=== PATIENT | female | born 1960 | race Caucasian/White ===

== ENCOUNTER 2017-04-29 16:16 | Emergency (ER) | payer SELFPAY ==
[2017-04-29] MEDS ORDERED: Sodium Chloride 0.9% 1,000 ML IV ONE (17:04)
[2017-04-29 17:19] LABS: BASO # 0.1 K/uL (0.0-0.2); BASO % 0.6 % (0.0-2.0); EOS # 0.1 K/uL (0.0-0.7); EOS % 1.4 % (0.0-4.0); LYMPH # 3.3 K/uL (1.0-4.3); LYMPH % 37.7 % (20.0-40.0); MEAN CELL VOLUME 84.4 fL (81.0-99.0); MEAN CORPUSCULAR HEMOGLOBIN 27.9 pg (27.0-31.0); MEAN CORPUSCULAR HGB CONC 33.1 g/dL (33.0-37.0); MEAN PLATELET VOLUME 8.3 fL (7.2-11.7); MONO # 0.5 K/uL (0.0-0.8); MONO % 6.1 % (0.0-10.0); NEUT # 4.7 K/uL (1.8-7.0); NEUT % 54.2 % (50.0-75.0); NRBC % 0.1 % (0.0-2.0); RBC 4.67 Mil/uL (3.80-5.20); RED CELL DISTRIBUTION WIDTH 12.6 % (11.5-14.5); WHITE BLOOD COUNT 8.7 K/uL (4.8-10.8)
[2017-04-29] MEDS ORDERED: Morphine 4 MG/ML VIAL ONE (17:22)
[2017-04-29 17:25] LABS: SQUAMOUS EPITHIAL 4 /hpf (0-5); URINE BILIRUBIN NEGATIVE (NEGATIVE); URINE BLOOD NEGATIVE (NEGATIVE); URINE CLARITY Hazy (Clear); URINE COLOR Yellow (YELLOW); URINE GLUCOSE (UA) NORMAL (Normal); URINE LEUKOCYTE ESTERASE TRACE Leu/uL (Negative); URINE NITRATE NEGATIVE (NEGATIVE); URINE PROTEIN NEGATIVE (NEGATIVE); URINE UROBILINOGEN NORMAL mg/dL (0.2-1.0)
[2017-04-29 17:31] LABS: ALB/GLOB RATIO 1.2 (1.0-2.1); ALT/SGPT 27 U/L (9-52); AST/SGOT 20 U/L (14-36); BLOOD UREA NITROGEN 13 mg/dL (7-17); CALCIUM 8.7 mg/dl (8.6-10.4); GFR AFRICAN-AMERICAN > 60; GFR NON-AFRICAN AMERICAN > 60
--- NOTE | 2017-04-29 18:17 | CT ---
PROCEDURE: CT Abdomen and Pelvis without Oral or IV contrast. HISTORY: Right flank pain COMPARISON: CT abdomen and pelvis without contrast performed 04/30/13 TECHNIQUE: Contiguous axial images of the abdomen and pelvis. No oral or IV contrast administered. Coronal and Sagittal reformats generated and reviewed. Radiation dose: Total exam DLP = 408.20 MGy-cm. This CT exam was performed using one or more of the following dose reduction techniques: Automated exposure control, adjustment of the mA and/or kV according to patient size, and/or use of iterative reconstruction technique. FINDINGS: There is limited evaluation of the solid organs without the administration of IV contrast. LOWER THORAX: Minimal basilar atelectasis. There is no visible pleural effusion or pneumothorax. Tiny right lower lobe calcified granuloma. Small hiatal hernia. LIVER: Unremarkable unenhanced appearance. GALLBLADDER AND BILE DUCTS: Unremarkable unenhanced appearance. PANCREAS: Unremarkable unenhanced appearance. SPLEEN: Unremarkable unenhanced appearance. ADRENALS: Unremarkable unenhanced appearance. KIDNEYS AND URETERS: No hydronephrosis or obstructing renal calculus. BLADDER: The urinary bladder appears unremarkable. REPRODUCTIVE: Uterus is present. APPENDIX: The appendix is not identified. No secondary signs of acute appendicitis identified. BOWEL: The stomach is nondistended. Lack of oral contrast limits evaluation for bowel pathology. The bowel loops appear within normal limits of caliber without evidence of intestinal obstruction. PERITONEUM: No significant free fluid. No definite free air. LYMPH NODES: No bulky lymphadenopathy identified. VASCULATURE: No aortic aneurysm. BONES: Degenerative changes. OTHER FINDINGS: None. IMPRESSION: No acute findings identified. Incidental findings as above.
--- NOTE | 2017-04-29 18:26 | C.PDOC ---
Time Seen by Provider: 04/29/17 16:40 Chief Complaint (Nursing): Abdominal Pain History Per: Patient Onset/Duration Of Symptoms: Days (1) Current Symptoms Are (Timing): Still Present Severity: Moderate Location Of Pain/Discomfort: Suprapubic Radiation Of Pain To:: Flank (right) Quality Of Discomfort: "Pain" Alleviating Factors: None Additional History Per: Prior Records Abnormal Vaginal Bleeding: No Last Menstral Period: Menopause Past Medical History Reviewed: Historical Data, Nursing Documentation, Vital Signs Vital Signs: Last Vital Signs Temp 98.0 F 04/29/17 16:20 Pulse 81 04/29/17 16:20 Resp 18 04/29/17 16:20 BP 124/81 04/29/17 16:20 Pulse Ox 98 04/29/17 18:28 - Medical History PMH: Anxiety, Depression, Hypercholesterolemia, Hypothyroidism, Kidney Stones Surgical History: Appendectomy Family History: States: Unknown Family Hx - Social History Hx Tobacco Use: Yes Hx Alcohol Use: Yes Hx Substance Use: No - Immunization History Hx Tetanus Toxoid Vaccination: No Hx Influenza Vaccination: No Hx Pneumococcal Vaccination: No Review Of Systems Except As Marked, All Systems Reviewed And Found Negative. Constitutional: Negative for: Fever, Weakness Cardiovascular: Negative for: Chest Pain Respiratory: Negative for: Shortness of Breath Gastrointestinal: Positive for: Abdominal Pain. Negative for: Vomiting, Diarrhea Genitourinary: Negative for: Dysuria, Vaginal Discharge, Vaginal Bleeding Musculoskeletal: Negative for: Neck Pain, Back Pain Skin: Negative for: Rash Neurological: Negative for: Weakness, Numbness Physical Exam - Physical Exam Appears: Non-toxic, No Acute Distress Skin: Normal Color, Warm, Dry, No Rash Head: Atraumatic, Normacephalic Eye(s): bilateral: Normal Inspection, PERRL, EOMI Neck: Normal ROM, Supple Cardiovascular: Rhythm Regular Respiratory: Normal Breath Sounds, No Accessory Muscle Use Gastrointestinal/Abdominal: Soft, Tenderness (lower abdomen) Back: No CVA Tenderness Extremity: Normal ROM Neurological/Psych: Oriented x3, Normal Motor, Normal Sensation ED Course And Treatment - Laboratory Results Result Diagrams: 04/29/17 17:14 04/29/17 17:14 Lab Interpretation: No Acute Changes O2 Sat by Pulse Oximetry: 98 Pulse Ox Interpretation: Normal - CT Scan/US CT abd/pelv Other Rad Studies (CT/US): Read By Radiologist, Radiology Report Reviewed CT/US Interpretation: IMPRESSION: No acute findings identified. Incidental findings as above. Disposition - Disposition Disposition Time: 19:00 Condition: FAIR - Clinical Impression Clinical Impression: Abdominal pain Physician Patient Turnover Patient Signed Over To: Ericka Herzog Handoff Comments: to f/up pelvic US
--- NOTE | 2017-04-29 20:47 | US ---
EXAM: US Pelvis Complete, Transabdominal CLINICAL HISTORY: 56 years old, female; Pain; Pelvic pain; Prior surgery; Surgery date: 6+ months; Surgery type: One of the ov cyst removed about 7 yrs ago TECHNIQUE: Real-time transabdominal pelvic ultrasound (complete) with image documentation. COMPARISON: No relevant prior studies available. FINDINGS: Uterus/cervix: The uterus measures 8.1 x 3.1 x 4.6 cm. The endometrial stripe measures 0.9 cm. Ovaries: Not seen as separate structures Free fluid: No free fluid. Bladder: Unremarkable as visualized. Wall is normal thickness for degree of distention. IMPRESSION: Ovaries not seen as separate structures. 2. Endometrial stripe measures 9 mm in thickness which is normal for a menstruating female. The patient's menstrual status is a uncertain and clinical correlation is needed. EXAM: US Pelvis, Transvaginal EXAM DATE/TIME: Exam ordered 04/29/2017 6:22 PM CLINICAL HISTORY: 56 years old, female; Pain; Pelvic pain; Prior surgery; Surgery date: 6+ months; Surgery type: One of the ov cyst removed about 7 yrs ago TECHNIQUE: Real-time transvaginal pelvic ultrasound (complete) with image documentation. Transvaginal imaging was used for better evaluation of the endometrium and adnexa. COMPARISON: No relevant prior studies available. FINDINGS: Uterus/cervix: Transvaginally the uterus measures 7.3 x 3.1 x 4.4 cm. Endometrial stripe measures 0.8 cm in thickness. The endometrial stripe is heterogeneous in appearance with a small rounded cyst or fluid collection noted within the fundic portion of the endometrial canal. It measures approximately 4 mm in diameter. No areas of hypervascularity noted on color Doppler examination of the endometrium. No myometrial mass. Right ovary: The right ovary is not seen as a separate structure. Left ovary: Transvaginally, the left ovary measures 2.9 x 1.8 x 2.6 cm and contains a 1.3 cm simple cyst. Blood flow seen in the left ovary on pulsed Doppler examination. Free fluid: No free fluid. Bladder: Empty bladder which cannot be evaluated with this probe. IMPRESSION: 1. 4 mm cyst or fluid collection noted within the fundic portion of the endometrial cavity. Followup ultrasound in 6 weeks is suggested to document resolution. 2. Nonvisualization of the right ovary. 3. 1.3 cm simple cyst in the left ovary is a normal finding in a menstruating female. Clinical correlation suggested
[2017-04-29 21:14] VITALS: BP 118/74; PULSE 83; RESP 20; TEMP 98.9; O2SAT 96
== END 2017-04-29 22:44 | disposition home or self-care (01) ==
LOC: C.ER 16:16
DX: R10.9 Unspecified abdominal pain (principal); E78.00 Pure hypercholesterolemia, unspecified; E03.9 Hypothyroidism, unspecified; Z87.442 Personal history of urinary calculi
CPT/HCPCS: 74176; 76830; 76856; 80053; 81001; 85025; 96361; 96374; 96375; 99285; J1885; J2270; J7040